=== PATIENT | female | born 1970 | race African-American/Black ===

== ENCOUNTER → 2016-09-23 | Outpatient (CLI) | payer BC, OTHER ==
[~2016-09-23] MED LIST: ALDARA CREAM TOP; ALEVE PO; BLEOMYCIN INJ; VICODIN ES 7.51 EAC1 PO; XANAX0.5 M1 PO
--- NOTE | ~2016-09-23 | CT2 ---
[facility] A Service of [facility] [place] RADIOLOGY TEXT RESULTS PATIENT: JUAN HOUSTON LOCATION: [facility] : 74 UNIT #: [id number] AGE: [address]: Velasquez Castano MD SEX: F ORDER DR: [id number] [facility] [address] [place], [place] [address] [id number] O MR#: [id number] Acc #: [id number] NAME: JUAN HOUSTON : 1970 SEX: F STUDY DATE/TIME: 09/23/2016 11:24 UNIT: [facility] ROOM: STUDY DESCRIPTION: CT Abd and Pelv W Cont Attending Physician: Velasquez Castano M.D. Referring Physician: Velasquez Castano M.D. Ordering Physician: Velasquez Castano M.D. Primary Care Physician: Velasquez Castano M.D. MEDICAL IMAGING REPORT This report is preliminary unless electronic signature is present EXAM CT abdomen and pelvis with contrast. 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 Observation for disease progression. PROCEDURE Contrast-enhanced CT of the abdomen and pelvis. This CT exam was performed with one or more of the following radiation dose reduction techniques: automatic exposure control, adjustment of mA and/or kV according to patient size, and iterative reconstruction. COMPARISON 04/22/2016 FINDINGS ABDOMEN WITH CONTRAST: Refer to separately dictated chest CT for thoracic findings. Adenopathy in the nick hepatis is not significantly changed. Adenopathy seen throughout the mesentery. Index left mesenteric node measures 2.6 x 1.7 cm, previously 2.1 x 1.9 cm. Second index left mesenteric node measures 3.2 cm and is unchanged. Distribution of the adenopathy is very similar to the prior. The spleen, kidneys, adrenal glands, pancreas, gallbladder unremarkable. The bowel loops are nondilated. PELVIS WITH CONTRAST: There is bilateral iliac chain adenopathy. An index right pelvic sidewall node measures 2.6 x 1.5 cm, [facility] [place] RADIOLOGY TEXT RESULTS PATIENT: JUAN HOUSTON LOCATION: [facility] : 74 UNIT #: [id number] AGE: [address]: Velasquez Castano MD SEX: F ORDER DR: significantly changed. No aggressive appearing bone lesions. IMPRESSION Diffuse adenopathy in the abdomen and pelvis, very similar to the previous study. There may be slight interval increase in size of a index left mesenteric node but the other nodes in the nick habitus, mesentery, and in the pelvis are not significantly changed. Dictated by... Denis Barger M.D. THIS IS AN ELECTRONICALLY VERIFIED REPORT Denis Barger M.D. at 09/26/2016 1:56 PM CHRISSY/vilma TD: 09/23/2016 14:53 JOB #: [id number] MEDICAL IMAGING REPORT Page 1 of 1 COPY
--- NOTE | ~2016-09-23 | CT114 ---
[facility] A Service of [facility] RADIOLOGY TEXT RESULTS PATIENT: JUAN HOUSTON LOCATION: [facility] : 74 UNIT #: [id number] AGE: [address]: Velasquez Castano MD SEX: F ORDER DR: [id number] [place] [id number] [facility]. [place], [place] [address] [id number] O MR#: [id number] Acc #: [id number] NAME: JUAN HOUSTON : 1970 SEX: F STUDY DATE/TIME: 09/23/2016 11:24 UNIT: [facility] ROOM: STUDY DESCRIPTION: CT Soft Tissue Neck W Cont Attending Physician: Velasquez Castano M.D. Referring Physician: Velasquez Castano M.D. Ordering Physician: Velasquez Castano M.D. Primary Care Physician: Velasquez Castano M.D. MEDICAL IMAGING REPORT This report is preliminary unless electronic signature is present EXAM Neck CT with contrast. HISTORY Leukemia diagnosed in 2008 with last chemotherapy 2012. Evaluate for neck adenopathy suspected. COMPARISON From 04/22/2016. TECHNIQUE Axial imaging was obtained from the skull base to the upper mediastinum with contrast. 100 mL of Isovue was used. This CT exam was performed with one or more of the following radiation dose reduction techniques: automatic exposure control, adjustment of mA and/or kV according to patient size, and iterative reconstruction. FINDINGS The skull base, parapharyngeal spaces, and pharyngeal mucosal surfaces are unremarkable and unchanged from the previous exam. No new or enlarging lymph nodes are seen in the neck. The parotid and submandibular glands are symmetric. Soft tissue planes in the hypopharynx and larynx are preserved. The thyroid gland is not enlarged. The trachea is widely patent. IMPRESSION Stable neck CT. No evidence of adenopathy. No change from the previous scan. Dictated by... [facility] A Service [facility] RADIOLOGY TEXT RESULTS PATIENT: JUAN HOUSTON LOCATION: [facility] : 74 UNIT #: [id number] AGE: [address]: Velasquez Castano MD SEX: F ORDER DR: To Taylor M.D. THIS IS AN ELECTRONICALLY VERIFIED REPORT To Taylor M.D. at 09/24/2016 4:10 PM JAYLON/vilma TD: 09/24/2016 14:50 JOB #: [id number] MEDICAL IMAGING REPORT Page 1 of 1 COPY
--- NOTE | ~2016-09-23 | CT55 ---
[facility] A Service of [facility] RADIOLOGY TEXT RESULTS PATIENT: JUAN HOUSTON [facility] : 74 UNIT #: [id number] AGE: [address]: Velasquez Castano MD SEX: F ORDER DR: [id number] [facility] [address] [place], [place] [address] [id number] O MR#: [id number] Acc #: [id number] NAME: JUAN HOUSTON : 1970 SEX: F STUDY DATE/TIME: 09/23/2016 11:24 [facility]: [facility]Y DESCRIPTION: CT Chest W Con Attending Physician: Velasquez Castano M.D. Referring Physician: Velasquez Castano M.D. Ordering Physician: Velasquez Castano M.D. Primary Care Physician: Velasquez Castano M.D. MEDICAL IMAGING REPORT This report is preliminary unless electronic signature is present EXAM CT chest with contrast. INDICATION Leukemia diagnosed 2008. Last chemotherapy 2012. Staging. Observation for disease progression. PROCEDURE Contrast-enhanced CT of the chest. This CT exam was performed with one or more of the following radiation dose reduction techniques: automatic exposure control, adjustment of mA and/or kV according to patient size, and iterative reconstruction. COMPARISON 04/22/2016 FINDINGS Lungs are clear. Subpectoral and axillary adenopathy. An index right axillary node measures 1.8 cm, previously measuring 2.3 cm. This difference is favored to be related to differences in positioning. It measures 2.7 cm on the coronal reformat. Adenopathy on the left is not significantly changed. The right hilar and perihilar adenopathy is slightly smaller with an index right hilar node measuring 1.5 cm, previously 2.3 cm. No new adenopathy is seen. No aggressive appearing bone lesion. Refer to separately dictated abdomen and pelvis CT for findings below the diaphragm. IMPRESSION 1. A prominent bilateral axillary and subpectoral adenopathy is probably not significantly changed. The largest is in the right axilla. It measures slightly smaller on the axials but slightly larger on the coronal reformats. This difference is favored to be related to STS. [facility] A Service of [facility] RADIOLOGY TEXT RESULTS PATIENT: JUAN HOUSTON LOCATION: [facility] : 74 UNIT #: [id number] AGE: [address]: Velasquez Castano MD SEX: F ORDER DR: differences in positioning. The other nodes are unchanged. 2. Interval decrease in size of the right perihilar lymph nodes. Dictated by... Denis Barger M.D. THIS IS AN ELECTRONICALLY VERIFIED REPORT Denis Barger M.D. at 09/26/2016 1:56 PM CHRISSY/vilma TD: 09/23/2016 14:44 JOB #: [id number] MEDICAL IMAGING REPORT Page 1 of 1 COPY
== END | disposition home or self-care (01) ==
LOC: CCAT 10:08
DX: C91.10 Chronic lymphocytic leukemia of B-cell type not having achieved remission (principal); R59.0 Localized enlarged lymph nodes
CPT/HCPCS: 70491; 71260; 74177; Q9967